=== PATIENT | male | born 1950 | race Hispanic/Latino ===

== ENCOUNTER 2018-12-05 20:39 | Emergency (ER) | payer OTHER ==
[2018-12-05 20:40] VITALS: BMI 25.7
--- NOTE | 2018-12-05 20:57 | C.PDOC ---
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 Parker for worsening bilateral chronic foot ulcers. Patient admits to pain to the area but denies fever, fall, or injury. <Erna Treadwell - Last Filed: 12/05/18 21:53> <Jayme Soto - Last Filed: 12/05/18 20:57> History Per: Patient History/Exam Limitations: no limitations Onset/Duration Of Symptoms: Days Current Symptoms Are (Timing): Still Present Location Of Injury: Right: Foot, Left: Foot Quality Of Symptoms: Painful Recent travel outside of the [place]: No <Erna Treadwell - Last Filed: 12/05/18 21:53> Time Seen by Provider: 12/05/18 20:57 Chief Complaint (Nursing): Abnormal Skin Integrity Past Medical History - Medical History PMH: Diabetes Denies: Chronic Kidney Disease Surgical History: Tonsillectomy - [facility] Procedures DETACHMENT AT RIGHT FOOT, COMPLETE 4TH RAY, OPEN APPROACH (01/29/18) DETACHMENT AT RIGHT FOOT, PARTIAL 5TH RAY, OPEN APPROACH (09/27/17) EXCISION OF R METATARSOPHAL JT, OPEN APPROACH, DIAGN (09/27/17) EXCISION OF RIGHT TOE PHALANX, OPEN APPROACH (01/29/18) FLUOROSCOPY OF SUPERIOR VENA CAVA, GUIDANCE (09/27/17) INSERTION OF INFUSION DEV INTO SUP VENA CAVA, PERC APPROACH (09/27/17) INSERTION OF INFUSION DEVICE INTO UPPER VEIN, PERC APPROACH (01/29/18) INTRODUCE OTH ANTI-INFECT IN CENTRAL VEIN, PERC (09/27/17) INTRODUCTION OF SERUM/TOX/VACCINE INTO MUSCLE, PERC APPROACH (09/27/17) RESECTION OF LEFT TOE PHALANGEAL JOINT, OPEN APPROACH (01/29/18) ULTRASONOGRAPHY OF RIGHT UPPER EXTREMITY VEINS, GUIDANCE (01/29/18) Family History: States: Unknown Family Hx - Social History Hx Alcohol Use: No Hx Substance Use: No <Jayme Soto - Last Filed: 12/05/18 20:57> Vital Signs: Last Vital Signs Temp 98.2 F 12/05/18 20:56 Pulse 80 12/05/18 20:56 Resp 16 12/05/18 20:56 BP 173/82 H 12/05/18 20:56 Pulse Ox 97 12/05/18 20:56 - [facility] Procedures DETACHMENT AT RIGHT FOOT, COMPLETE 4TH RAY, OPEN APPROACH (01/29/18) DETACHMENT AT RIGHT FOOT, PARTIAL 5TH RAY, OPEN APPROACH (09/27/17) EXCISION OF R METATARSOPHAL JT, OPEN APPROACH, DIAGN (09/27/17) EXCISION OF RIGHT TOE PHALANX, OPEN APPROACH (01/29/18) FLUOROSCOPY OF SUPERIOR VENA CAVA, GUIDANCE (09/27/17) INSERTION OF INFUSION DEV INTO SUP VENA CAVA, PERC APPROACH (09/27/17) INSERTION OF INFUSION DEVICE INTO UPPER VEIN, PERC APPROACH (01/29/18) INTRODUCE OTH ANTI-INFECT IN CENTRAL VEIN, PERC (09/27/17) INTRODUCTION OF SERUM/TOX/VACCINE INTO MUSCLE, PERC APPROACH (09/27/17) RESECTION OF LEFT TOE PHALANGEAL JOINT, OPEN APPROACH (01/29/18) ULTRASONOGRAPHY OF RIGHT UPPER EXTREMITY VEINS, GUIDANCE (01/29/18) <Erna Treadwell - Last Filed: 12/05/18 21:53> Disposition <Jayme Soto - Last Filed: 12/05/18 20:57> <Erna Treadwell - Last Filed: 12/05/18 21:53> - Disposition Forms: [facility] (Greek)
[2018-12-05] MEDS ORDERED: Vancomycin 1 GM 1 GM/250 ML BAG IV STA (21:20)
[2018-12-05] MEDS ORDERED: Piperacillin/Tazobact 3.375 gm 100 ML IV STA (21:20)
[2018-12-05 21:49] LABS: VENOUS BLOOD GAS PCO2 17 mmHg (40-60); VENOUS BLOOD GAS PO2 172 mm/Hg (30-55); VENOUS BLOOD PH 7.39 (7.32-7.43)
[2018-12-05 21:56] LABS: BASO % 0.5 % (0.0-2.0); EOS # 0.1 K/uL (0.0-0.7); EOS % 0.8 % (0.0-4.0); HEMOGLOBIN 12.4 g/dL (12.0-18.0); LYMPH # 1.1 K/uL (1.0-4.3); LYMPH % 12.4 % (20.0-40.0); MEAN CELL VOLUME 96.8 fL (80.0-94.0); MEAN CORPUSCULAR HEMOGLOBIN 33.1 pg (27.0-31.0); MEAN CORPUSCULAR HGB CONC 34.2 g/dL (33.0-37.0); MEAN PLATELET VOLUME 8.4 fL (7.2-11.7); MONO % 11.4 % (0.0-10.0); NEUT # 6.7 K/uL (1.8-7.0); NEUT % 74.9 % (50.0-75.0); RBC 3.74 Mil/uL (4.40-5.90); RED CELL DISTRIBUTION WIDTH 13.2 % (11.5-14.5)
--- NOTE | 2018-12-05 21:56 | C.PDOC ---
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 Patient admits to pain to the area. He denies fever, falls/injuries, chest pain, SOB, palpitations, leg weakness. PMHx: DM, diabetic neuropathy Time Seen by Provider: 12/05/18 20:57 Chief Complaint (Nursing): Abnormal Skin Integrity History Per: Patient History/Exam Limitations: no limitations Onset/Duration Of Symptoms: Days Current Symptoms Are (Timing): Still Present Recent travel outside of the [place]: No Past Medical History Reviewed: Historical Data, Nursing Documentation, Vital Signs Vital Signs: Last Vital Signs Temp 98.2 F 12/05/18 20:56 Pulse 80 12/05/18 20:56 Resp 16 12/05/18 20:56 BP 173/82 H 12/05/18 20:56 Pulse Ox 97 12/05/18 20:56 Primary Care Provider: Maribell Saldivar - Medical History PMH: Diabetes Surgical History: Tonsillectomy - [facility] Procedures DETACHMENT AT RIGHT FOOT, COMPLETE 4TH RAY, OPEN APPROACH (01/29/18) DETACHMENT AT RIGHT FOOT, PARTIAL 5TH RAY, OPEN APPROACH (09/27/17) EXCISION OF R METATARSOPHAL JT, OPEN APPROACH, DIAGN (09/27/17) EXCISION OF RIGHT TOE PHALANX, OPEN APPROACH (01/29/18) FLUOROSCOPY OF SUPERIOR VENA CAVA, GUIDANCE (09/27/17) INSERTION OF INFUSION DEV INTO SUP VENA CAVA, PERC APPROACH (09/27/17) INSERTION OF INFUSION DEVICE INTO UPPER VEIN, PERC APPROACH (01/29/18) INTRODUCE OTH ANTI-INFECT IN CENTRAL VEIN, PERC (09/27/17) INTRODUCTION OF SERUM/TOX/VACCINE INTO MUSCLE, PERC APPROACH (09/27/17) RESECTION OF LEFT TOE PHALANGEAL JOINT, OPEN APPROACH (01/29/18) ULTRASONOGRAPHY OF RIGHT UPPER EXTREMITY VEINS, GUIDANCE (01/29/18) Family History: States: No Known Family Hx - Social History Hx Alcohol Use: Yes Hx Substance Use: No Review Of Systems Constitutional: Negative for: Fever, Chills Cardiovascular: Negative for: Chest Pain, Palpitations Respiratory: Negative for: Shortness of Breath Gastrointestinal: Negative for: Nausea, Vomiting, Abdominal Pain, Diarrhea Musculoskeletal: Positive for: Foot Pain Skin: Positive for: Other (Ulcers) Neurological: Negative for: Weakness, Numbness Physical Exam - Physical Exam Appears: Well, Non-toxic, No Acute Distress Skin: Warm, Other (see extremity exam) Head: Normacephalic Eye(s): bilateral: Normal Inspection Oral Mucosa: Moist Cardiovascular: Rhythm Regular Respiratory: Normal Breath Sounds, No Rales, No Rhonchi, No Wheezing Gastrointestinal/Abdominal: Normal Exam, Bowel Sounds, Soft, No Tenderness Extremity: Capillary Refill (< 2 sec all digits ), Other (2cm ulcer with dark malodorous discharge to plantar aspect of left foot at 5th MTP/ great toe. 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, 1.5cm plantar ulcer at right 3rd MTP, no discharge.) Pulses: Left Dorsalis Pedis: Normal, Right Dorsalis Pedis: Normal Neurological/Psych: Oriented x3 Gait: Steady ED Course And Treatment - Laboratory Results Result Diagrams: 12/05/18 21:45 12/05/18 21:45 Lab Results: pO2 172 mm/Hg (30-55) H 12/05/18 21:45 VBG pH 7.39 (7.32-7.43) 12/05/18 21:45 VBG pCO2 17 mmHg (40-60) L* 12/05/18 21:45 VBG HCO3 15.6 mmol/L 12/05/18 21:45 VBG Total CO2 10.8 mmol/L (22-28) L 12/05/18 21:45 VBG O2 Sat (Calc) 99.8 % (40-65) H 12/05/18 21:45 VBG Base Excess -12.0 mmol/L (0.0-2.0) L 12/05/18 21:45 VBG Potassium 1.2 mmol/L (3.6-5.2) L* 12/05/18 21:45 Sodium 152.0 mmol/l (132-148) H 12/05/18 21:45 Chloride 130.0 mmol/L (98-107) H 12/05/18 21:45 Glucose 115 mg/dl (75-110) H 12/05/18 21:45 Lactate 0.7 mmol/L (0.7-2.1) 12/05/18 21:45 Crit Value Called To Tadeo cheema do 12/05/18 21:45 Crit Value Called By Elin cardona casual shoe inspector 12/05/18 21:45 Crit Value Read Back Y 12/05/18 21:45 Blood Gas Notified Time 214912/05/18 21:45 O2 Sat by Pulse Oximetry: 97 (Room air) Pulse Ox Interpretation: Normal Progress Note: Blood work and foot x-rays ordered. Patient given 1 dose in ED of IV Vancomycin and IV Zosyn. Patient evaluated by podiatry resident, who discussed patient with Dr. Abernathy. Reevaluation Time: 01:30 Reassessment Condition: Improved (Patient currently comfortable, in no current pain/distress. He is comfortable with plan of continuing his PO Augmentin and follow up with Dr. Abernathy this week. Patient understands he should return to ED if symptoms worsen.) - Physician Consult Information Physician Contacted: Rashaad Abernathy Outcome Of Conversation: Patient evaluated by podiatry resident who discussed patient with attending installment dealer. Podiatry recommends ER dose of IV antibiotics, and then d/c home with follow up in the office. Patient already taking Augmentin x 5 days (prophylactically). Disposition Counseled Patient/Family Regarding: Studies Performed, Diagnosis, Need For Followup - Disposition Referrals: Rashaad Abernathy, [place] [Staff Provider] - Disposition: HOME/ ROUTINE Disposition Time: 01:30 Condition: STABLE Additional Instructions: FOLLOW UP WITH DR ABERNATHY IN 1-2 DAYS CONTINUE YOUR ANTIBIOTICS RETURN TO ER IF YOU HAVE WORSENING WOUNDS, FEVER, DISCHARGE OR OTHER CONCERNING SYMPTOMS Instructions: Diabetic Foot Ulcer (DC) Forms: [facility] (Northern Irish) Print Language: JORDANIAN - Clinical Impression Clinical Impression: Diabetic foot ulcers - Scribe Statement The provider has reviewed the documentation as recorded by the Cortneyibzach Cody All medical record entries made by the Cortneyibzach were at my direction and personally dictated by me. I have reviewed the chart and agree that the record accurately reflects my personal performance of the history, physical exam, medical decision making, and the department course for this patient. I have also personally directed, reviewed, and agree with the discharge instructions and disposition.
[2018-12-05 22:05] LABS: ALB/GLOB RATIO 1.2 (1.0-2.1); ALT/SGPT 19 U/L (21-72); AST/SGOT 28 U/L (17-59); BLOOD UREA NITROGEN 16 mg/dL (9-20); CALCIUM 9.2 mg/dl (8.6-10.4); GFR NON-AFRICAN AMERICAN > 60
--- NOTE | 2018-12-05 22:41 | CP.PCM.CON ---
History of Present Illness - History of Present Illness History of Present Illness: Podiatry Consult Note: Dr. Goodson 68M patient with PMHx of DMII, HTN, seen in the ED for b/l foot ulcerations. Patient is well known to Dr. Goodson and sees him regularly in office for wound care. He states that he was sent in by Dr. Goodson to rule out gas to the R/L foot. He denies any pain to his b/l feet at this time. He notes that he currently takes antibiotics at home prophylactically that were prescribed by Dr. Goodson. He denies any nausea/vomiting/fever/chills. PMHx: DMII, HTN ALL: Cefazolin Review of Systems - Constitutional Constitutional: As Per HPI Past Patient History - Past Medical History & Family History Past Medical History?: Yes - Past Social History Smoking Status: Never Smoked - CARDIAC Hx Cardiac Disorders: No - PULMONARY Hx Respiratory Disorders: No - NEUROLOGICAL Hx Neurological Disorder: Yes (diabetic neuropathy) - HEENT Hx HEENT Problems: No - RENAL Hx Chronic Kidney Disease: No - ENDOCRINE/METABOLIC Hx Endocrine Disorders: Yes (DM) Hx Diabetes Mellitus Type 2: Yes - HEMATOLOGICAL/ONCOLOGICAL Hx Blood Disorders: No - INTEGUMENTARY Hx Dermatological Problems: No - MUSCULOSKELETAL/RHEUMATOLOGICAL Hx Musculoskeletal Disorders: No Hx Falls: Yes - GASTROINTESTINAL Hx Gastrointestinal Disorders: No - GENITOURINARY/GYNECOLOGICAL Hx Genitourinary Disorders: No - PSYCHIATRIC Hx Substance Use: No - SURGICAL HISTORY Hx Tonsillectomy: Yes - ANESTHESIA Hx Anesthesia: Yes Hx Anesthesia Reactions: No Meds Allergies/Adverse Reactions: Allergies Allergy/AdvReac Type Severity Reaction Status Date / Time cefazolin Allergy RASH Verified 01/29/18 17:15 - Medications Medications: Current Medications Vancomycin HCl (Vancomycin 1gm In Normal Saline Addvantage) 1 gm in 250 mls @ 166.667 mls/hr IV STAT STA; Protocol Stop: 12/05/18 22:49 Physical Exam - Constitutional Appears: Non-toxic, No Acute Distress - Head Exam Head Exam: ATRAUMATIC, NORMOCEPHALIC - Extremities Exam Additional comments: Bilateral lower extremity focused exam: Vascular: DP/PT pulses are palpable 1/4, Cap refill <3 secs in all digits, Temp gradient warm to warm, minimal edema appreciated to L forefoot. Ortho: No pain with palpation, MMT 5/5 Neuro: Gross sensation intact. Protective sensation diminished B/L. Derm: L: Superficial plantar hallux ulceration, stage 2, with dry eschar cap, no drainage, no purulence, no bone exposure appreciated. Additional ulceration appreciated submetatarsal 5 with eschar cap, no rainage, no erythema, no purulence, no bone exposure appreciated. R: submetatarsal 4 ulceration, down to the level of subcutaneous tissue, with hyperkeratotic rim with 100% granular base. no drainage, no probe to bone - Neurological Exam Neurological exam: Alert, Normal Gait, Oriented x3 - Psychiatric Exam Psychiatric exam: Normal Affect, Normal Mood - Skin Skin Exam: Warm Results - Vital Signs Recent Vital Signs: Last Vital Signs Temp 98.2 F 12/05/18 20:56 Pulse 80 12/05/18 20:56 Resp 16 12/05/18 20:56 BP 173/82 H 12/05/18 20:56 Pulse Ox 97 12/05/18 22:10 - Labs Result Diagrams: 12/05/18 21:45 12/05/18 21:45 Labs: Laboratory Results - last 24 hr 12/05/18 12/05/18 12/05/18 21:45 21:45 21:45 WBC 9.0 RBC 3.74 L Hgb 12.4 Hct 36.2 MCV 96.8 H MCH 33.1 H MCHC 34.2 RDW 13.2 Plt Count 192 MPV 8.4 Neut % (Auto) 74.9 Lymph % (Auto) 12.4 L [place] % (Auto) 11.4 H Eos % (Auto) 0.8 Baso % (Auto) 0.5 Neut # (Auto) 6.7 Lymph # (Auto) 1.1 [place] # (Auto) 1.0 H Eos # (Auto) 0.1 Baso # (Auto) 0.0 pO2 172 H VBG pH 7.39 VBG pCO2 17 L* VBG HCO3 15.6 VBG Total CO2 10.8 L VBG O2 Sat (Calc) 99.8 H VBG Base Excess -12.0 L VBG Potassium 1.2 L* Sodium 152.0 H 136 Chloride 130.0 H 101 Glucose 115 H Lactate 0.7 Crit Value Called To T anette do Crit Value Called By C canot conditioning room worker Crit Value Read Back Y Blood Gas Notified Time 2150 Potassium 4.1 Carbon Dioxide 24 Anion Gap 16 BUN 16 Creatinine 0.7 L Est GFR ( Amer) > 60 Est GFR (Non-Af Amer) > 60 Random Glucose 280 H Calcium 9.2 Total Bilirubin 0.7 AST 28 ALT 19 L Alkaline Phosphatase 87 Total Protein 7.2 Albumin 4.0 Globulin 3.2 Albumin/Globulin Ratio 1.2 Venous Blood Potassium 1.2 L* Assessment & Plan - Assessment and Plan (Free Text) Assessment: 68M patient with PMHx of DMII, HTN, with b/l foot ulcerations. Plan: Patient seen and evaluated with all questions and concerns addressed Vitals, chart, and labs reviewed; WBC 9.0, Afebrile L/R foot x-rays taken and reviewed; no soft tissue emphysema appreciated Local wound care to b/l feet; betadine, DSD Continue PO abx as given by Dr. Goodson F/U with Dr. Goodson within the week Thank you for the consult - Date & Time Date: 12/05/18 Time: 22:41
[2018-12-05] MEDS ORDERED: Piperacillin/Tazobact 3.375 gm 100 ML IVPB ONE (22:42)
[2018-12-05] MEDS ORDERED: Vancomycin 1 GM 1 GM/250 ML BAG IVPB ONE (22:42)
[2018-12-05] MEDS ORDERED: DiphenhydrAMINE 50 mg/ml Inj ONE (23:00)
[2018-12-06 01:31] VITALS: O2SAT 97
[2018-12-06 01:50] VITALS: BP 158/55; PULSE 72; RESP 20; TEMP 97.9
--- NOTE | 2018-12-06 13:37 | RAD ---
Date of service: 12/05/2018 PROCEDURE: Right Foot Radiographs. HISTORY: FOOT WOUNDS COMPARISON: No prior TECHNIQUE: 3 views obtained. FINDINGS: BONES: Amputation 4th and 5th digits at the level of the distal metatarsal diaphysis. Questionable osteotomy distal aspect 3rd metatarsal. Osteotomy proximal aspect 1st proximal phalanx. Questionable osteotomy proximal aspect 2nd proximal phalanx. There is a cutaneous ulcer seen along the plantar aspect of the 4th metatarsal head. No clear plain radiographic evidence of osteomyelitis. JOINTS: Normal. SOFT TISSUES: Normal. OTHER FINDINGS: None. IMPRESSION: Multiple osteotomies. No definite plain radiographic evidence of osteomyelitis.
--- NOTE | 2018-12-07 15:38 | RAD ---
Date of service: 12/05/2018 PROCEDURE: Left Foot Radiographs. HISTORY: FOOT WOUNDS COMPARISON: None. TECHNIQUE: 3 views obtained. FINDINGS: BONES: Apparent postoperative changes at the level of the PIP joint 2nd toe. No definitive evidence of acute displaced fracture nor dislocation. No obvious cortical destructive changes however the possibility of early osteomyelitis cannot be completely excluded.. 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 Hammertoe deformities 2nd and to a lesser degree 3/4 digits. SOFT TISSUES: There is a plantar surface ulceration at the level of the head of the 5th metatarsal. Mild diffuse soft tissue swelling; rule out cellulitis OTHER FINDINGS: None. IMPRESSION: Apparent postoperative changes at the level of the PIP joint 2nd toe. No definitive evidence of acute displaced fracture nor dislocation. No obvious cortical destructive changes. There is a plantar surface ulceration at the level of the head of the 5th metatarsal. Diffuse soft tissue swelling; rule out cellulitis MRI if early osteomyelitis suspected clinically
== END 2018-12-06 01:47 | disposition home or self-care (01) ==
LOC: C.ER 20:39
DX: E11.621 Type 2 diabetes mellitus with foot ulcer (principal); L97.519 Non-pressure chronic ulcer of other part of right foot with unspecified severity; L97.529 Non-pressure chronic ulcer of other part of left foot with unspecified severity; I10 Essential (primary) hypertension; E11.40 Type 2 diabetes mellitus with diabetic neuropathy, unspecified
CPT/HCPCS: 36415; 73630; 80053; 82803; 85025; 85651; 87040; 96374; 96375; 99284; J2543; J3370